=== PATIENT | female | born 2000 | race Caucasian/White ===

== ENCOUNTER 2021-10-04 04:16 | Emergency (ER) | payer BC ==
[2021-10-04] MEDS ORDERED: Lidocaine 1% w/Epinephrine 1:100K 20 ML VIAL ONE (05:17)
== END 2021-10-04 05:59 | disposition home or self-care (01) ==
LOC: CSHERS 04:16
DX: L05.01 Pilonidal cyst with abscess (principal); F90.9 Attention-deficit hyperactivity disorder, unspecified type; Z79.899 Other long term (current) drug therapy
CPT/HCPCS: 10080; 87070; 87205